=== PATIENT | female | born 1945 | race Hispanic/Latino ===

== ENCOUNTER 2023-02-14 06:13 | Day surgery (SDC) | payer OTHER ==
[2023-02-14] VITALS (9 sets, daily range): BP systolic 138–174; BP diastolic 68–79; PULSE 57–62; RESP 13–16
[~2023-02-14] VITALS: Ht 152.4 cm; Wt 47.6 kg
[~2023-02-14 06:13] MED LIST: ATOR40TA69 PO; CARV25TA PO; CLON1PAT12 TD; FOLI1TAB85 PO; HYDR200T75 PO; LEVO175C2 PO; NIFE-78 PO
[2023-02-14] MEDS ORDERED: 0.9%NACL 1000ML 1,000 ML IV ONE (06:15)
[2023-02-14] MEDS ORDERED: PROPOFOL 10 MG/ML 20ML VIAL IV ONE (09:42)
== END 2023-02-14 11:22 | disposition home or self-care (01) ==
LOC: ENDO 06:13 → DAH 06:13 → ENDO 11:22
PROVIDERS: ATTEND Internal Medicine Gastroenterology
DX: D50.9 Iron deficiency anemia, unspecified (principal); R63.4 Abnormal weight loss; D12.8 Benign neoplasm of rectum; K57.30 Diverticulosis of large intestine without perforation or abscess without bleeding; K64.0 First degree hemorrhoids; K29.50 Unspecified chronic gastritis without bleeding; K59.00 Constipation, unspecified; R93.2 Abnormal findings on diagnostic imaging of liver and biliary tract; K86.9 Disease of pancreas, unspecified; I10 Essential (primary) hypertension; I25.10 Atherosclerotic heart disease of native coronary artery without angina pectoris; E03.9 Hypothyroidism, unspecified; E78.00 Pure hypercholesterolemia, unspecified; M19.90 Unspecified osteoarthritis, unspecified site; Z85.038 Personal history of other malignant neoplasm of large intestine; Z86.73 Personal history of transient ischemic attack (TIA), and cerebral infarction without residual deficits; Z79.899 Other long term (current) drug therapy; Z98.890 Other specified postprocedural states; Z98.891 History of uterine scar from previous surgery; Z79.890 Hormone replacement therapy; Z68.21 Body mass index [BMI] 21.0-21.9, adult
CPT/HCPCS: 43239; 45385; J7030 ×3; J2704; A4620 ×2; A4215 ×4; A4223 ×2; A7002 ×2; A4222 ×2; A4221 ×2; A4663 ×2; A4216 ×2; A4606 ×2; J3490